=== PATIENT | female | born 1975 | race Two or more races ===

== ENCOUNTER 2021-10-02 10:23 | Outpatient (CLI) | payer OTHER | END 2021-10-02 10:33 | disposition home or self-care (01) | LOC: RX STUDY 10:23 | PROVIDERS: ATTEND Internal Medicine Gastroenterology | DX: K21.00 Gastro-esophageal reflux disease with esophagitis, without bleeding (principal) ==

== ENCOUNTER 2024-07-22 07:16 | Emergency (ER) | payer OTHER ==
[~2024-07-22] VITALS: Ht 154.9 cm; Wt 90.7 kg
[2024-07-22] MEDS ORDERED: FAMOTIDINE/PF 20 MG in 0.9 % SODIUM CHLORIDE 8 ML IV PUSH STA (08:18)
[2024-07-22] MEDS ORDERED: 0.9 % SODIUM CHLORIDE 1,000 ML IV STA (08:18)
[2024-07-22 09:17] LABS: HEMATOCRIT 42.1 % (36.0-45.00); MEAN CELL VOLUME 85.2 fL (80.00-100.00); MEAN CORPUSCULAR HEMOGLOBIN 28.4 pg (27.00-32.0); MEAN CORPUSCULAR HGB CONC 33.4 g/dl (32.0-36.0); PLATELET COUNT 269 K/uL (150-450); RED BLOOD COUNT 4.94 M/uL (4.00-6.00); RED CELL DISTRIBUTION WIDTH 14.3 % (11.5-14.5)
[2024-07-22 09:30] LABS: PH,URINE 6.5 (5.0-8.0); URINE APPEARANCE Clear; URINE BILIRRUBIN Negative (NEGATIVE); URINE BLOOD Negative; URINE COLOR Yellow; URINE GLUCOSE Negative (NEGATIVE); URINE KETONE Negative (NEGATIVE); URINE LEUKOCYTE Negative; URINE NITRATE Negative; URINE PROTEIN Negative (NEGATIVE); URINE UROBILINOGEN 0.2 E.U./dl
[2024-07-22 09:34] LABS: URINE BACTERIA 108.2 uL (0.0-1933); URINE RBC 12.9 uL (0.0-20.8); URINE WBC 4.7 uL (0.0-23.2)
[2024-07-22 09:43] LABS: URINE CAST 0.15 uL (0.0-1.40)
[2024-07-22 10:03] LABS: CALCIUM 9.4 mg/dL (8.5-10.1); CREATININE SERUM 0.7 mg/dL (0.55-1.02); GFR 88.94; POTASSIUM 4.21 mEq/L (3.5-5.1)
== END 2024-07-22 14:27 | disposition home or self-care (01) ==
LOC: ER 07:16
PROVIDERS: Emergency Medicine
DX: K52.9 Noninfective gastroenteritis and colitis, unspecified (principal)

== ENCOUNTER 2024-07-22 14:23 | Outpatient (CLI) | payer OTHER ==
[2024-07-26 07:07] LABS: hav igm Negative (Negative); hcv Non Reactive (Non Reactive); hep b c Negative (Negative); hep b s ag Negative (Negative)
== END 2024-07-22 14:26 | disposition home or self-care (01) ==
LOC: LAB 14:23
PROVIDERS: ATTEND Emergency Medicine
DX: Z00.00 Encounter for general adult medical examination without abnormal findings (principal)

== ENCOUNTER 2024-08-26 21:13 | Emergency (ER) | payer OTHER ==
[~2024-08-26] VITALS: Ht 157.5 cm; Wt 90.7 kg
[2024-08-26 21:31] VITALS: BP 123/84; O2SAT 97
[2024-08-26] MEDS ORDERED: HYOSCYAMINE SULFATE 0.125 MG TAB.SUBL SL ONE (23:15)
[2024-08-26] MEDS ORDERED: FAMOTIDINE/PF 20 MG/2 ML VIAL IV PUSH ONE (23:15)
[2024-08-27 00:14] LABS: HEMATOCRIT 36.4 % (36.0-45.00); HEMOGLOBIN 12.4 g/dL (12.0-15.00); MEAN CELL VOLUME 84.1 fL (80.00-100.00); MEAN CORPUSCULAR HEMOGLOBIN 28.6 pg (27.00-32.0); PLATELET COUNT 238 K/uL (150-450); RED BLOOD COUNT 4.33 M/uL (4.00-6.00); RED CELL DISTRIBUTION WIDTH 13.6 % (11.5-14.5)
[2024-08-27] MEDS ORDERED: MAG HYDROX/ALUMINUM HYD/SIMETH 30 ML BLIST.PACK PO ONE (01:00)
== END 2024-08-27 01:42 | disposition home or self-care (01) ==
LOC: ER 21:13
PROVIDERS: Emergency Medicine
DX: K29.70 Gastritis, unspecified, without bleeding (principal)

== ENCOUNTER 2024-09-01 08:10 | Outpatient (CLI) | payer OTHER ==
[2024-09-01 08:49] LABS: HEMATOCRIT 37.7 % (36.0-45.00); HEMOGLOBIN 12.8 g/dL (12.0-15.00); MEAN CELL VOLUME 84.3 fL (80.00-100.00); MEAN CORPUSCULAR HEMOGLOBIN 28.6 pg (27.00-32.0); PLATELET COUNT 290 K/uL (150-450); RED BLOOD COUNT 4.48 M/uL (4.00-6.00); RED CELL DISTRIBUTION WIDTH 13.3 % (11.5-14.5)
[2024-09-01 09:38] LABS: ALBUMIN 3.8 gm/dL (3.4-5.0); BILIRUBIN TOTAL 0.55 mg/dL (0.3-1.2); CALCIUM 9.5 mg/dL (8.5-10.1); CREATININE SERUM 0.63 mg/dL (0.55-1.02); GFR 100.44; GLOBULINA 3.4 G/DL (2.4-3.5); POTASSIUM 3.94 mEq/L (3.5-5.1); TOTAL PROTEIN 7.2 gm/dL (6.4-8.2)
== END 2024-09-01 14:38 | disposition home or self-care (01) ==
LOC: LAB 08:10
PROVIDERS: ATTEND Emergency Medicine
DX: R10.9 Unspecified abdominal pain (principal); K29.70 Gastritis, unspecified, without bleeding

== ENCOUNTER → 2024-11-28 09:14 | Outpatient (CLI) | payer OTHER | END | disposition home or self-care (01) | LOC: LAB 09:14 | DX: A64 Unspecified sexually transmitted disease (principal); B19.9 Unspecified viral hepatitis without hepatic coma ==

== ENCOUNTER → 2025-04-29 | Emergency (ER) | payer OTHER ==
[~2025-04-29] VITALS: Ht 154.9 cm; Wt 90.7 kg
[~2025-04-29] MED LIST: DIPHENHYDRAMINE HCL 50 MG/ML VIAL 1ML IV STA; EPINEPHRINE HCL/PF 1 MG/ML AMPUL SUBCUTANEO STA; FAMOtidine 10 MG/ML (4ML VIAL) IV PUSH STA; METHYLPREDNISOLONE SOD SUCC 125 MG VIAL IV STA
[2025-04-29 08:49] LABS: BASO % 1.5 % (0.1-1.2); EOS # 0.26 (0.04-0.54); EOS % 3.9 % (0.7-7.0); LYMPH # 2.45 (1.18-3.74); LYMPH % 37.2 % (19.3-53.1); MEAN PLATELET VOLUME 11.80 fl (9.4-12.4); MONO # 0.63 (0.24-0.82); MONO % 9.6 % (4.7-12.5); NEUT # 3.13 (1.56-6.13); NEUT % 47.5 % (34.0-71.1); RED CELL DISTRIBUTION WIDTH 13.5 % (11.6-14.4)
[2025-04-29 09:37] LABS: ALT/SGPT 24.0 U/L (12-78); AST/SGOT 23.0 U/L (15-37); BILIRUBIN TOTAL 0.5 mg/dL (0.3-1.2); BUN CREA RATIO 17.0 (7.0-25.0); CREATININE SERUM 0.63 mg/dL (0.55-1.02); GFR 100.44; GLOBULINA 3.5 G/DL (2.4-3.5); GLUCOSE FASTING 78.0 mg/dL (65-100); OSMOLALITY SERUM 285.0 MOSM/KG (275-295)
== END | disposition home or self-care (01) ==
LOC: ER 06:51
DX: T78.1XXA Other adverse food reactions, not elsewhere classified, initial encounter (principal); L50.8 Other urticaria; X58.XXXA Exposure to other specified factors, initial encounter

== ENCOUNTER 2025-06-10 20:38 | Emergency (ER) | payer OTHER ==
[~2025-06-10] VITALS: Ht 154.9 cm; Wt 90.7 kg
[2025-06-10 21:39] LABS: COVID-19 AG NEGATIVE (NEGATIVE)
== END 2025-06-10 22:08 | disposition home or self-care (01) ==
LOC: ER 20:38
PROVIDERS: General Practice
DX: R51.9 Headache, unspecified (principal); R09.82 Postnasal drip; Z20.822 Contact with and (suspected) exposure to COVID-19